=== PATIENT | male | born 1940 | race Caucasian/White ===

== ENCOUNTER 2017-02-13 10:59 | Day surgery (SDC) | payer MEDICARE, OTHER ==
--- NOTE | ~2017-02-13 | EGD ---
EGD REPORT [facility] [address] [place] [address] NAME: RYAN DORAN : [birth year] STATUS : REG [facility] PAT#: [id number] AGE: 76 ADM/REG DATE : 02/13/17 MR#: [id number] REPORT SERV DATE: 02/13/17 DICTATED BY: MEGHAN HERRON DATE: 02/13/17 REPORT STATUS : Draft [facility]: [facility] DATE: 02/13/17 [facility] Patient Name: Ryan Doran Date of : 1940 Attending MD: MEGHAN HERRON MD Procedure Date No Time: 02/13/2017 Procedure: Colonoscopy Indications: Melena Referring MD: Caprice Nicholas MD Medicines: Propofol per Anesthesia Complications: No immediate complications. Procedure: Pre-Anesthesia Assessment: - ASA Grade Assessment: II - A patient with mild systemic disease. After I obtained informed consent, the scope was passed under direct vision. Throughout the procedure, the patient's blood pressure, pulse, and oxygen saturations were monitored continuously. The CF [id number] was introduced through the anus and advanced to the ileocolonic anastomosis. The colonoscopy was performed without difficulty. The patient tolerated the procedure well. The quality of the bowel preparation was good. Findings: A single large-mouthed diverticulum was found in the rectum. The exam was otherwise without abnormality on direct and retroflexion views. Impression: - Diverticulosis in the rectum. - The examination was otherwise normal on direct and retroflexion views. Procedure Code(s): --- Professional --- 69354, Colonoscopy, flexible, proximal to splenic flexure; diagnostic, with or without collection of specimen(s) by brushing or washing, with or without colon decompression (separate procedure) Diagnosis Code(s): --- Professional --- K57.30, Diverticulosis of large intestine without perforation or abscess without bleeding K92.1, Melena CPT copyright 2013 [employer]. All rights reserved. EGD REPORT [facility] [address] [place]. [address] NAME: RYAN DORAN : 42 STATUS : REG [facility] PAT#: [id number] AGE: 76 ADM/REG DATE : 02/13/17 MR#: [id number] REPORT SERV DATE: 02/13/17 DICTATED BY: MEGHAN HERRON DATE: 02/13/17 REPORT STATUS : Draft TRANSCRIBED BY: [employer] DATE: 02/13/17 The codes documented in this report are preliminary and upon insurance account manager review may be revised to meet current compliance requirements. MEGHAN HERRON MD 02/13/2017 1:06 PM This report has been signed electronically. Number of Addenda: 0 Note Initiated On: 02/13/2017 12:53 PM Scope Withdrawal Time 0 hours 0 minutes 0 seconds [address] [place] [address]
[~2017-02-13 10:59] MED LIST: AMB5 PO; ASAB PO; C1 PO; C5 PO; CIP5 PO; COUMADIN4 MG PO; CRESTOR10 PO; FISH-EPA1000 MG PO; LOP25 PO; LOP50 PO; MAGNESIUM PO; MULTIPLE VIT PO; PRIN10 PO; TOPXL50 PO; ZYRTEC ALLGY10 MG PO
== END 2017-02-13 23:59 | disposition home or self-care (01) ==
LOC: DMU 10:59
PROVIDERS: Internal Medicine Gastroenterology
PROC: 0DJD8ZZ Inspection of Lower Intestinal Tract, Via Natural or Artificial Opening Endoscopic (ICD-10-PCS; principal; 2017-02-13 13:00)
DX: K92.1 Melena (principal); K57.30 Diverticulosis of large intestine without perforation or abscess without bleeding; E78.00 Pure hypercholesterolemia, unspecified; M19.90 Unspecified osteoarthritis, unspecified site; D64.9 Anemia, unspecified; I10 Essential (primary) hypertension; Z87.891 Personal history of nicotine dependence; Z79.82 Long term (current) use of aspirin; Z79.899 Other long term (current) drug therapy; Z90.49 Acquired absence of other specified parts of digestive tract; Z98.890 Other specified postprocedural states